=== PATIENT | female | born 1975 | race Native Hawaiian/Other Pacific Islander ===

== ENCOUNTER 2020-01-18 09:57 | Day surgery (SDC) | payer OTHER ==
[2019-12-25 10:16] VITALS: BMI 22.8
[~2020-01-18 09:57] MED LIST: LACTATED RINGERS 1,000 ML IV SCH; LIDOCAINE 1% (10MG/ML) FOR IV START INTRADERMA PRN
[2020-01-18 10:25] VITALS: BP 114/68; PULSE 98; TEMP 97.4
[2020-01-18] MEDS ORDERED: LACTATED RINGERS 1,000 ML IV ONE (10:29)
[2020-01-18] MEDS ORDERED: PROPOFOL 10 MG/ML 20 ML VIAL IV ONE (10:33)
--- NOTE | 2020-01-18 11:00 | P.PCN ---
Date of Procedure: 01/18/20 Description of Procedure: BRIEF HISTORY: Patient is a 44-year-old female presenting for evaluation colonoscopy for evaluation of family history of colon cancer. The patient has a family history of colon cancer in her father diagnosed in his 30s. Last colonoscopy 13 years ago. No other complaints at this time. PROCEDURE PERFORMED: Colonoscopy. PREOPERATIVE DIAGNOSIS: Family history of colon cancer, last colonoscopy 13 years ago. ESTIMATED BLOOD LOSS: Minimal. IV sedation per Anesthesia. PROCEDURE: After informed consent was obtained, the patient, was brought into the endoscopy unit. IV sedation was administered by Anesthesia under continuous monitoring. Digital rectal examination was normal. Initially the Olympus CF-190 flexible video colonoscope was then inserted in the rectum, gradually advanced into the cecum without any difficulty. Careful examination was performed as the scope was gradually being withdrawn. Ileocecal valve and the appendiceal orifice were visualized and appeared normal. Prep was excellent. Mucosa of the cecum, ascending colon, transverse colon, descending colon, sigmoid colon, and rectum appeared normal. A few scattered diverticula noted throughout the colon. Retroflexion was performed in the rectum and no lesions were seen. The patient tolerated the procedure well. IMPRESSION: Normal-appearing colon from rectum to cecum. Mild diverticulosis. RECOMMENDATIONS: Findings of this examination were discussed with the patient. Okay to resume diet. Okay to resume medications. Recommendation is for repeat colonoscopy in 5 years for family history of colon cancer.
== END 2020-01-18 11:54 | disposition home or self-care (01) ==
LOC: ORWHC2ENDO 09:57
PROVIDERS: ATTEND Internal Medicine
DX: Z12.11 Encounter for screening for malignant neoplasm of colon (principal); K57.30 Diverticulosis of large intestine without perforation or abscess without bleeding; Z80.0 Family history of malignant neoplasm of digestive organs; Z88.0 Allergy status to penicillin; Z79.3 Long term (current) use of hormonal contraceptives; Z79.899 Other long term (current) drug therapy; Z98.890 Other specified postprocedural states
CPT/HCPCS: 81025; J2704; G0105; 45378

== ENCOUNTER → 2020-08-19 | Outpatient (CLI) | payer OTHER ==
--- NOTE | 2020-08-19 15:14 | US ---
EXAMINATION TYPE: Transabdominal DATE OF EXAM: 08/19/2020 2:28 PM COMPARISON: NONE CLINICAL HISTORY: Z33.1 incidental, R10.2 pelvic/perineal. Bleeding, 4, para 2, mis carriage 1 EXAM PERFORMED: Unknown EXAM MEASUREMENTS: GESTATIONAL AGE / DATING Physician Established: Not established yet Dates by LMP: LMP unknown Dates by First Scan: No previous this is first scan Dates by Current Scan for: By gestational sac measurement (6 weeks/0 days) EDC: 04/14/2021 MATERNAL ANATOMY Uterus: 7.4 x 4.5 x 5.3cm Right Ovary: 2.0 x 1.1 x 2.5cm, 1.6cm hypoechoic area Left Ovary: 2.9 x 2.4 x 2.0cm, 1.6cm hypoechoic area Post CDS / Adnexa: wnl Presence of free fluid: no GESTATION / SURVEY No pole seen at this time MSD: 1.7cm (6 weeks/0 days) Yolk Sac (normal less than 6mm): 2.1mm Date of LMP: Unknown Beta HcG (if available): Not available at time of exam. IMPRESSION: 1. Gestational sac. Measuring 6 weeks 0 days gestation based on the mean sac diameter pole is n ot identified. Follow-up and correlation with beta-hCG is recommended. 2. Bilateral ovarian cysts.
== END ==
LOC: RADUSWWP 13:44
PROVIDERS: ATTEND Family Medicine
DX: N83.201 Unspecified ovarian cyst, right side (principal); N83.202 Unspecified ovarian cyst, left side; O34.81 Maternal care for other abnormalities of pelvic organs, first trimester; Z3A.01 Less than 8 weeks gestation of pregnancy
CPT/HCPCS: 76801; 76817

== ENCOUNTER 2020-09-01 15:16 | Emergency (ER) | payer OTHER ==
[2020-09-01 17:31] LABS: Appearance,Urine Clear (Clear); Bilirubin,Urine Negative (Negative); Blood,Urine Large (Negative); Color,Urine Light Yellow; Glucose,Urine (UA) Negative (Negative); Ketones,Urine Negative (Negative); Leukocyte Esterase,Urine Negative (Negative); Nitrite,Urine Negative (Negative); PH, Urine 7.5 (5.0-8.0); Protein,Urine Negative (Negative); RBC,Urine 1 /hpf (0-5); Specific Gravity,Urine 1.005 (1.001-1.035); Squamous Epithelial Cell,Urine 2 /hpf (0-4); Urobilinogen,Urine <2.0 mg/dL (<2.0); WBC,Urine <1 /hpf (0-5)
[2020-09-01 18:09] VITALS: TEMP 98.1
--- NOTE | 2020-09-01 19:17 | US ---
EXAMINATION TYPE: Transabdominal DATE OF EXAM: 09/01/2020 6:49 PM COMPARISON: US 08/19/2020 CLINICAL HISTORY: pain. Pain and bleeding. Hx miscarriage. A1. EXAM PERFORMED: Transvaginal (TV) and Transabdominal (TA) EXAM MEASUREMENTS: GESTATIONAL AGE / DATING Physician Established: Not yet established. Dates by LMP: Unknown. Dates by First Scan: (7 weeks/6 days) EDC: 04/14/2021. Gestational sac seen only at this time. Dates by Current Scan for: Possible gestational sac seen only at this time, measures out of range. MATERNAL ANATOMY Uterus: 8.2 x 5.5 x 4.2 cm. Appears heterogeneous. Hypoechoic area seen in cervix: 1.6 x 1.0 x 0.3 cm . Right Ovary: 2.6 x 2.7 x 1.8 cm. Left Ovary: Not seen. Post CDS / Adnexa: Fluid seen in CDS: 3.8 x 1.7 x 0.6 cm. Presence of free fluid: yes in CDS Presence of corpus luteal cyst: Not seen. GESTATION / SURVEY MSD: 0.71 cm. (Measures out of range.) Yolk Sac (normal less than 6mm): Not seen. IUP: Possible gestational sac seen only at this time. Measures OOR. Uterus/endometrium appears heter ogeneous. Date of LMP: Unknown Beta HcG (if available): Not available IMPRESSION: Small amount of fluid in the cervical canal could relate to active bleeding. Tiny fluid collection in the uterine fundus could be early gestational sac. Also consider blighted ovum since there is no sat isfactory development compared to previous exam of 08/19/2020.
--- NOTE | 2020-09-01 19:19 | ED ---
Female Urogenital HPI - General Source: patient Mode of arrival: ambulatory Limitations: no limitations - History of Present Illness Last Menstrual Period: 05/31/20 <Humberto Madrid - Last Filed: 09/01/20 23:42> <IainPauline Radha - Last Filed: 09/02/20 13:51> - General Chief complaint: Vaginal Bleeding Stated complaint: 6 wks preg/bleeding Time Seen by Provider: 09/01/20 18:59 - History of Present Illness Initial comments: 45-year-old female, 8 weeks , presenting to emergency Department with a chief complaint of vaginal bleeding and abdominal cramping. Patient states she has developed spotting for the past 2 weeks that has been intermittent in nature. Patient also reports increased vaginal bleeding from last night. Patient states she had to change her clothes twice and also had some bleeding noticed on her bed sheets. Patient reports having an ultrasound about 2 weeks ago and was found to have a viable intrauterine . Patient also reports lower abdominal cramping though it does not feel like her previous miscarriage. Patient reports this was an unplanned . She does report some nausea but no vomiting. Denies any dysuria, increased urgency or frequency. Denies any hematuria, hematochezia or melena. Denies any fevers or chills. Denies chest pain shortness of breath or back pain. (Humberto Madrid) - Related Data Home Medications Medication Instructions Recorded Confirmed Acyclovir (Unknown Dose) 1 tab PO TID PRN 12/24/19 01/18/20 Cholecalciferol [Vitamin D3 (25 2,000 unit PO DAILY 12/24/19 01/18/20 Mcg = 1000 Iu)] Magnesium Oxide 400 mg PO DAILY 12/24/19 01/18/20 Melatonin 2.5 mg PO HS PRN 12/24/19 01/18/20 Norethindrone-E.estradiol-Iron 1 each PO DAILY 12/24/19 01/18/20 [Junel Fe 24 Tablet] Sertraline [Zoloft] 50 mg PO DAILY 12/24/19 01/18/20 diphenhydrAMINE [Benadryl] 25 mg PO DIRECTED PRN 12/24/19 01/18/20 Allergies Allergy/AdvReac Type Severity Reaction Status Date / Time Penicillins Allergy Rash/Hives Verified 09/01/20 15:52 Review of Systems ROS Other: All systems not noted in ROS Statement are negative. <JuliusHumberto - Last Filed: 09/01/20 23:42> ROS Other: All systems not noted in ROS Statement are negative. <Pauline Timmons - Last Filed: 09/02/20 13:51> ROS Statement: Those systems with pertinent positive or pertinent negative responses have been documented in the HPI. Past Medical History Past Medical History: No Reported History Additional Past Medical History / Comment(s): "Sensitive stomach, a lot of diarrhea." Hx Genital HSV. History of Any Multi-Drug Resistant Organisms: None Reported Past Surgical History: No Surgical Hx Reported Additional Past Surgical History / Comment(s): Colonoscopy. Past Anesthesia/Blood Transfusion Reactions: No Reported Reaction Past Psychological History: Anxiety, Depression Smoking Status: Never smoker Past Alcohol Use History: None Reported Past Drug Use History: None Reported - Past Family History Father Family Medical History: Cancer <JuliusHumberto - Last Filed: 09/01/20 23:42> General Exam Limitations: no limitations General appearance: alert, in no apparent distress Head exam: Present: atraumatic, normocephalic, normal inspection Eye exam: Present: normal appearance, PERRL, EOMI Pupils: Present: normal accommodation ENT exam: Present: normal exam, normal oropharynx, mucous membranes moist, TM's normal bilaterally, normal external ear exam Neck exam: Present: normal inspection, full ROM. Absent: tenderness Respiratory exam: Present: normal lung sounds bilaterally. Absent: respiratory distress, wheezes, rales, rhonchi, stridor Cardiovascular Exam: Present: regular rate, normal rhythm, normal heart sounds GI/Abdominal exam: Present: soft. Absent: distended, tenderness, guarding, rebound External exam: Present: normal external exam. Absent: erythema, swelling, lesions Speculum exam: Present: vaginal bleeding (Unable to see cervical loss due to bleeding. Residual blood noted.), tissue (Small amounts of tissue noted. ) Extremities exam: Present: normal inspection, full ROM, normal capillary refill. Absent: tenderness Back exam: Present: normal inspection, full ROM. Absent: tenderness, CVA tenderness (R), CVA tenderness (L) Neurological exam: Present: alert, oriented X3 Psychiatric exam: Present: normal affect, normal mood Skin exam: Present: warm, dry, intact, normal color <Humberto Madrid - Last Filed: 09/01/20 23:42> Course Vital Signs 09/01/20 09/01/20 09/01/20 15:47 18:08 20:03 Temperature 98.8 F 98.1 F Pulse Rate 89 75 90 Respiratory 17 16 18 Rate Blood Pressure 116/74 106/69 103/68 O2 Sat by Pulse 100 99 100 Oximetry Medical Decision Making - Lab Data Result diagrams: 09/01/20 19:36 09/01/20 19:36 <Humberto Madrid - Last Filed: 09/01/20 23:42> - Lab Data Result diagrams: 09/01/20 19:36 09/01/20 19:36 <Pauline Timmons - Last Filed: 09/02/20 13:51> - Medical Decision Making 45-year-old female, , 8 weeks presenting to the emergency department with a chief complaint of vaginal bleeding. On physical examination, mild lower abdominal tenderness. Pelvic examination reveals tissue. Unable to fully visualize the cervical os due to the residual blood. This was dark red blood, no profuse bleeding at this time. UA reveals no signs of urina ry tract infection, just hematuria. Serum hCG reveals levels dropping to 1700, from 19,000. Ultrasound of the abdomen and pelvis reveals small amount of fluid in the cervical canal which could relate to active bleeding. There is a tiny fluid collection in the uterine fundus couldn't be an early gestational sac. Possible blighted ovum since there is no satisfactory development compared to ultrasound performed on 08/19/20. Patient likely having a miscarriage.. Case was discussed with who contacted Dr Easton who is aware that the patient is going to follow up in the outpatient setting. Dr Timmons also spoke to the patient reguarding this. Strict return parameters were thoroughly discussed with patient who is understanding and agreeable. (Humberto Madrid) I was available for consultation in the emergency department. The history and physical exam were done by the midlevel provider. I was consulted for this patients care. I reviewed the case with the midlevel provider and based on their presentation of the patient, I agree with the assessment, medical decision making and plan of care as documented. I spoke with Dr. Easton. Patient states she has been attempting to make an appointment with [email or web address] for 1 week without success. Notified her that Dr. Easton is aware of her condition and she must call in am to make appointment. Return for any new or worsening symptoms. Beta must return to zero. Patient understood this. Chart was dictated using VYou dictation software. Attempts were made to correct any dictation errors however some typographical errors may persist. Patient was seen during a national state of emergency due to the Covid-19 pandemic. (Pauline Timmons) - Lab Data Lab Results 09/01/20 09/01/20 09/01/20 Range/Units 19:35 19:36 19:36 WBC 8.9 (3.8-10.6) k/uL RBC 3.86 (3.80-5.40) m/uL Hgb 12.6 (11.4-16.0) gm/dL Hct 36.6 (34.0-46.0) % MCV 94.8 (80.0-100.0) fL MCH 32.7 (25.0-35.0) pg MCHC 34.5 (31.0-37.0) g/dL RDW 12.0 (11.5-15.5) % Plt Count 356 (150-450) k/uL MPV 6.4 Neutrophils % 67 % Lymphocytes % 23 % Monocytes % 5 % Eosinophils % 3 % Basophils % 1 % Neutrophils # 6.0 (1.3-7.7) k/uL Lymphocytes # 2.0 (1.0-4.8) k/uL Monocytes # 0.5 (0-1.0) k/uL Eosinophils # 0.3 (0-0.7) k/uL Basophils # 0.1 (0-0.2) k/uL Sodium 136 L (137-145) mmol/L Potassium 4.0 (3.5-5.1) mmol/L Chloride 101 (98-107) mmol/L Carbon Dioxide 27 (22-30) mmol/L Anion Gap 8 mmol/L BUN 10 (7-17) mg/dL Creatinine 0.55 (0.52-1.04) mg/dL Est GFR (CKD-EPI)AfAm >90 (>60 ml/min/1.73 sqM) Est GFR (CKD-EPI)NonAf >90 (>60 ml/min/1.73 sqM) Glucose 94 (74-99) mg/dL Calcium 9.4 (8.4-10.2) mg/dL Total Bilirubin 0.6 (0.2-1.3) mg/dL AST 28 (14-36) U/L ALT 15 (4-34) U/L Alkaline Phosphatase 49 (38-126) U/L Total Protein 7.4 (6.3-8.2) g/dL Albumin 4.5 (3.5-5.0) g/dL HCG, Quant 1726.0 mIU/mL Urine Color Urine Appearance (Clear) Urine pH (5.0-8.0) Ur Specific [place] (1.001-1.035) Urine Protein (Negative) Urine Glucose (UA) (Negative) Urine Ketones (Negative) Urine Blood (Negative) Urine Nitrite (Negative) Urine Bilirubin (Negative) Urine Urobilinogen (<2.0) mg/dL Ur Leukocyte Esterase (Negative) Urine RBC (0-5) /hpf Urine WBC (0-5) /hpf Ur Squamous Epith Cells (0-4) /hpf Blood Type O Positive Blood Type Confirm Blood Type Recheck No Previous Record Bld Type Recheck Status CABO Indicated Antibody Screen NEGATIVE Spec Expiration Date 09/04/2020 - 233509/01/20 09/01/20 Range/Units 19:36 Unknown WBC (3.8-10.6) k/uL RBC (3.80-5.40) m/uL Hgb (11.4-16.0) gm/dL Hct (34.0-46.0) % MCV (80.0-100.0) fL MCH (25.0-35.0) pg MCHC (31.0-37.0) g/dL RDW (11.5-15.5) % Plt Count (150-450) k/uL MPV Neutrophils % % Lymphocytes % % Monocytes % % Eosinophils % % Basophils % % Neutrophils # (1.3-7.7) k/uL Lymphocytes # (1.0-4.8) k/uL Monocytes # (0-1.0) k/uL Eosinophils # (0-0.7) k/uL Basophils # (0-0.2) k/uL Sodium (137-145) mmol/L Potassium (3.5-5.1) mmol/L Chloride (98-107) mmol/L Carbon Dioxide (22-30) mmol/L Anion Gap mmol/L BUN (7-17) mg/dL Creatinine (0.52-1.04) mg/dL Est GFR (CKD-EPI)AfAm (>60 ml/min/1.73 sqM) Est GFR (CKD-EPI)NonAf (>60 ml/min/1.73 sqM) Glucose (74-99) mg/dL Calcium (8.4-10.2) mg/dL Total Bilirubin (0.2-1.3) mg/dL AST (14-36) U/L ALT (4-34) U/L Alkaline Phosphatase (38-126) U/L Total Protein (6.3-8.2) g/dL Albumin (3.5-5.0) g/dL HCG, Quant mIU/mL Urine Color Light Yellow Urine Appearance Clear (Clear) Urine pH 7.5 (5.0-8.0) Ur Specific [place] 1.005 (1.001-1.035) Urine Protein Negative (Negative) Urine Glucose (UA) Negative (Negative) Urine Ketones Negative (Negative) Urine Blood Large H (Negative) Urine Nitrite Negative (Negative) Urine Bilirubin Negative (Negative) Urine Urobilinogen <2.0 (<2.0) mg/dL Ur Leukocyte Esterase Negative (Negative) Urine RBC 1 (0-5) /hpf Urine WBC <1 (0-5) /hpf Ur Squamous Epith Cells 2 (0-4) /hpf Blood Type Blood Type Confirm O Positive Blood Type Recheck Bld Type Recheck Status Antibody Screen Spec Expiration Date Disposition Is patient prescribed a controlled substance at d/c from ED?: No Time of Disposition: 20:48 <Humberto Madrid - Last Filed: 09/01/20 23:42> <Pauline Timmons - Last Filed: 09/02/20 13:51> Clinical Impression: Vaginal bleeding Disposition: HOME SELF-CARE Condition: Stable Instructions (If sedation given, give patient instructions): Miscarriage (ED) Additional Instructions: Follow-up with the OB. Return to emergency department if symptoms worsen. Referrals: Aravind Luther DO [Primary Care Provider] - 1-2 days
[2020-09-01 19:42] LABS: Basophils # (A) 0.1 k/uL (0-0.2); Basophils % (A) 1 %; Eosinophils # (A) 0.3 k/uL (0-0.7); Eosinophils % (A) 3 %; HCT 36.6 % (34.0-46.0); HGB 12.6 gm/dL (11.4-16.0); Lymphocytes % (A) 23 %; MCH 32.7 pg (25.0-35.0); MCHC 34.5 g/dL (31.0-37.0); MCV 94.8 fL (80.0-100.0); Mean Platelet Volume 6.4; Monocytes # (A) 0.5 k/uL (0-1.0); Monocytes % (A) 5 %; Neutrophils % (A) 67 %; Platelet Count 356 k/uL (150-450); RBC 3.86 m/uL (3.80-5.40); WBC 8.9 k/uL (3.8-10.6)
[2020-09-01 20:02] LABS: ALT 15 U/L (4-34); AST 28 U/L (14-36); African American GFR (CKD) >90 (>60 ml/min/1.73 sqM); Albumin 4.5 g/dL (3.5-5.0); Alkaline Phosphatase 49 U/L (38-126); Anion Gap 8 mmol/L; Blood Urea Nitrogen 10 mg/dL (7-17); Calcium 9.4 mg/dL (8.4-10.2); Carbon Dioxide 27 mmol/L (22-30); Chloride 101 mmol/L (98-107); Glucose 94 mg/dL (74-99); Non-African American GFR(CKD) >90 (>60 ml/min/1.73 sqM); Sodium 136 mmol/L (137-145); Total Bilirubin 0.6 mg/dL (0.2-1.3); Total Protein 7.4 g/dL (6.3-8.2)
[2020-09-01 20:03] VITALS: BP 103/68; PULSE 90; RESP 18
== END 2020-09-01 21:06 | disposition home or self-care (01) ==
LOC: EC 15:16
DX: O20.9 Hemorrhage in early pregnancy, unspecified (principal); O99.341 Other mental disorders complicating pregnancy, first trimester; F32.9 Major depressive disorder, single episode, unspecified; Z3A.08 8 weeks gestation of pregnancy
CPT/HCPCS: 36415; 76801; 76817; 80053; 81001; 84702; 85025; 86850; 86900; 86901

== ENCOUNTER → 2021-03-17 | Outpatient (CLI) | payer OTHER ==
--- NOTE | 2021-03-20 11:46 | MM ---
Reason for exam: screening (asymptomatic). Last mammogram was performed 5 years ago. History: Family history of breast cancer in maternal grandmother. Took hormonal contraceptives for 5 years. Took estrogen for 5 years. Physical Findings: A clinical breast exam by your physician is recommended on an annual basis and results should be correlated with mammographic findings. MG Screening Mammo w CAD Bilateral CC and MLO view(s) were taken. Prior study comparison: March 27, 2016, mammogram, performed at [place]. The breast tissue is extremely dense which could obscure a lesion on mammography. Focal asymmetry right breast. This finding is changed when compared with previous exams. ASSESSMENT: Incomplete: need additional imaging evaluation, BI-RAD 0 RECOMMENDATION: Special view mammogram of the right breast. If lesion persists on supplemental views, image directed ultrasound is recommended. [facility] will attempt to contact patient to return for supplemental views and ultrasound if indicated.
== END | disposition home or self-care (01) ==
LOC: RADMAMWWP 07:59
PROVIDERS: ATTEND Obstetrics & Gynecology
DX: Z12.31 Encounter for screening mammogram for malignant neoplasm of breast (principal); Z80.3 Family history of malignant neoplasm of breast
CPT/HCPCS: 77067

== ENCOUNTER → 2021-03-23 | Outpatient (CLI) | payer OTHER ==
--- NOTE | 2021-03-24 10:45 | MM ---
Reason for exam: additional evaluation requested from abnormal screening. Last mammogram was performed less than 1 month ago. History: Family history of breast cancer in maternal grandmother. Taking hormonal contraceptives for 5 years. Took estrogen for 5 years. Physical Findings: Nurse did not find any significant physical abnormalities on exam. MG Work Up Mamm w CAD RT Spot compression CC, spot compression MLO, and LM view(s) were taken of the right breast. Prior study comparison: March 17, 2021, bilateral MG screening mammo w CAD. March 27, 2016, mammogram, performed at [place]. The breast tissue is heterogeneously dense. This may lower the sensitivity of mammography. Medial asymmetry persists on spot CC. However no persisting abnormality on spot MLO or true lateral. Ultrasound recommended. These results were verbally communicated with the patient and result sheet given to the patient on 03/23/21. ASSESSMENT: Incomplete: need additional imaging evaluation, BI-RAD 0 RECOMMENDATION: Ultrasound of the right breast. (medial half and axilla at pain)
--- NOTE | 2021-03-24 10:46 | USB ---
Reason for exam: additional evaluation requested from abnormal screening. History: Family history of breast cancer in maternal grandmother. Taking hormonal contraceptives for 5 years. Took estrogen for 5 years. US Breast Workup RT Right complete breast ultrasound includes all four quadrants, the retroareolar region and axilla. Finding demonstrates no cystic or solid lesion seen. Scanned whole breast. These results were verbally communicated with the patient and result sheet given to the patient on 03/23/21. ASSESSMENT: Probably benign, BI-RAD 3 RECOMMENDATION: Follow-up diagnostic mammogram of the right breast in 6 months.
== END | disposition home or self-care (01) ==
LOC: RADMAMWWP 13:42
PROVIDERS: ATTEND Obstetrics & Gynecology
DX: N64.89 Other specified disorders of breast (principal); Z80.3 Family history of malignant neoplasm of breast
CPT/HCPCS: 77065

== ENCOUNTER → 2021-08-18 | Outpatient (CLI) | payer OTHER ==
--- NOTE | 2021-08-19 07:19 | US ---
EXAMINATION TYPE: US transvaginal DATE OF EXAM: 08/18/2021 COMPARISON: NONE CLINICAL HISTORY: O20.1 Missed . Family history ovarian CA, 4, para 2 TECHNIQUE: Transvaginal ER exam Date of LMP: 08/11/2021 EXAM MEASUREMENTS: Uterus: 7.1 x 3.4 x 3.5 cm Endometrial Stripe: 0.4 cm Right Ovary: 1.6 x 1.2 x 2.2 cm Left Ovary: 3.5 x 2.0 x 2.5 cm 1. Uterus: anteverted, mildly heterogeneous 2. Endometrium: wnl 3. Right Ovary: wnl 4. Left Ovary: 2.4 x 1.6 x 2.2cm cyst 5. Bilateral Adnexa: wnl 6. Posterior cul-de-sac: wnl IMPRESSION: 1. Mild heterogeneity of the uterine myometrium could reflect small leiomyomatous change. 2. Probable functional left ovarian cyst which can be confirmed with follow-up study in 6 weeks.
--- NOTE | 2021-08-19 07:19 | US ---
EXAMINATION TYPE: US kidneys/renal and bladder DATE OF EXAM: 08/18/2021 COMPARISON: NONE CLINICAL HISTORY: R31.9 Hematuria. Hematuria, frequent urination EXAM MEASUREMENTS: Right Kidney: 9.4 x 4.0 x 4.4 cm Left Kidney: 11.6 x 4.9 x 4.7 cm Right Kidney: smaller than left kidney, no hydronephrosis or masses seen Left Kidney: no hydronephrosis or masses seen Bladder: wnl Bilateral Jets seen: yes There is no evidence for hydronephrosis at this point in time. No nephrolithiasis is seen. No holly s are identified. The urinary bladder is anechoic. Bilateral ureteral jets are seen. IMPRESSION: Mild atrophic change right kidney.
== END | disposition home or self-care (01) ==
LOC: RADUSWWP 15:41
PROVIDERS: ATTEND Family Medicine
DX: N26.1 Atrophy of kidney (terminal) (principal)
CPT/HCPCS: 76770; 76830

== ENCOUNTER → 2021-11-17 | Outpatient (CLI) | payer OTHER ==
--- NOTE | 2021-11-17 13:47 | MM ---
Reason for Exam: Follow-up at short interval from prior study. Last screening mammogram was performed 8 month(s) ago. Patient History: Menarche at age 13. First Full-Term at age 25. Currently using Hormonal Contraceptives, for 5 years. Maternal grandmother had breast cancer at or over age 50. Maternal grandmother had ovarian cancer, age 42. Last menstrual period: 11/09/2021 Risk Values: Yuliana 5 year model risk: 0.7%. NCI Lifetime model risk: 8.6%. Prior Study Comparison: 03/27/2016 Screening Mammogram, [place]. 03/17/2021 Bilateral Screening Mammogram, [facility]. 03/23/2021 Right Diagnostic Mammogram, [facility]. Tissue Density: Right: The breast tissue is extremely dense which could obscure a lesion on mammography. Findings: Analyzed By CAD. No suspicious abnormality in the upper-outer aspect right breast is evident. Follow-up is recommended. Overall Assessment: Probably benign, BI-RAD 3 Management: Diagnostic Mammogram of both breasts in 6 months. A clinical breast exam by your physician is recommended on an annual basis and results should be correlated with mammographic findings. This exam should not preclude additional follow-up of suspicious palpable abnormalities. Results were given to the patient verbally at the time of exam. Electronically signed and approved by: Omari Webb D.O. Radiologis
== END | disposition home or self-care (01) ==
LOC: RADMAMWWP 13:03
PROVIDERS: ATTEND Family Medicine
DX: R92.8 Other abnormal and inconclusive findings on diagnostic imaging of breast (principal); Z80.3 Family history of malignant neoplasm of breast; Z80.41 Family history of malignant neoplasm of ovary
CPT/HCPCS: 77065

== ENCOUNTER → 2022-03-01 | Outpatient (CLI) | payer OTHER ==
--- NOTE | 2022-03-01 11:24 | XR ---
EXAMINATION TYPE: XR cervical spine comp DATE OF EXAM: 03/01/2022 COMPARISON: NONE HISTORY: Pain TECHNIQUE: Four views are submitted. FINDINGS: The odontoid is intact. There are no compression deformities. The prevertebral soft tissue structur es are within normal limits. Degenerative disc disease C5-6 C6-C7. IMPRESSION: 1. Mild degenerative disc disease C5-6 and C6-C7. Consider MRI follow-up..
--- NOTE | 2022-03-01 11:27 | XR ---
EXAMINATION TYPE: XR shoulder complete RT DATE OF EXAM: 03/01/2022 COMPARISON: NONE HISTORY: Pain TECHNIQUE: Three views are submitted. FINDINGS: The osseous structures are intact. There is no acute fracture or dislocation. The AC joint is maint ained. However, clavicle slightly elevated relative to acromion. IMPRESSION: 1. AC joint distance is normal. There is slight elevation of the clavicle. Correlate with point tende rness.. Consider follow-up MRI to assess AC joint ligamentous injury.
== END | disposition home or self-care (01) ==
LOC: RADXRYALE 10:57
PROVIDERS: ATTEND Physician Assistant
DX: M50.323 Other cervical disc degeneration at C6-C7 level (principal); M25.511 Pain in right shoulder
CPT/HCPCS: 72050

== ENCOUNTER → 2022-03-21 | Outpatient (CLI) | payer OTHER ==
--- NOTE | 2022-03-22 02:46 | MR ---
EXAMINATION TYPE: MR shoulder RT wo con DATE OF EXAM: 03/21/2022 COMPARISON: None HISTORY: Rt shoulder and neck pain Multiplanar multiecho imaging of the right shoulder with no contrast. There is septated cystic fluid collection posterior to the posterior glenoid labrum that measures 18 x 12 mm that is consistent with synovial cyst. The glenoid queta appear intact. The subscapularis ten don is intact. Biceps tendon is intact. The supraspinatus tendon is intact. No retraction. The infraspinatus tendon is intact. No evidence of rotator cuff tear. AC joint is intact with no subacromial impingement. Scapula is intact. No bony destructive process. Glenohumeral joint space is fairly normal. IMPRESSION: No evidence of rotator cuff tear. Synovial cyst on the posterior aspect of the shoulder joint.
== END | disposition home or self-care (01) ==
LOC: RADMRIMAIN 18:45
PROVIDERS: ATTEND Family Medicine
DX: M25.511 Pain in right shoulder (principal)

== ENCOUNTER → 2022-11-23 | Outpatient (CLI) | payer OTHER ==
--- NOTE | 2022-11-25 19:47 | XR ---
EXAMINATION TYPE: XR cervical spine 5 views comp, XR lumbar spine or 3V, XR thoracic spine 3 views co mplete DATE OF EXAM: 11/23/2022 COMPARISON: None HISTORY: 47-year-old female M41.9. FINDINGS: Cervical spine: No significant bony neural foraminal narrowing seen on either side. No predental space widening or pr evertebral soft tissue swelling. There is grade 1 anterolisthesis at C7-T1 likely due to underlying f acet arthropathy. Disc interspaces are preserved. Normal odontoid view. Thoracic spine: Slight reverse S-shaped scoliotic curvature of the thoracolumbar spine. 12 rib bearing thoracic verte bral bodies. All pedicles are visualized. Vertebral body heights are preserved and alignment is maint ained. Lumbar spine: 5 lumbar type vertebral bodies. Vertebral body heights are preserved and alignment is maintained. IMPRESSION: 1. Cervical spine: Grade 1 anterolisthesis at C7-T1 likely due to underlying facet arthropathy. 2. Thoracic spine: A slight reverse S-shaped scoliotic curvature of the thoracolumbar spine. No verte bral compression collapse or malalignment. 3. Lumbar spine: No vertebral compression collapse or malalignment.
== END | disposition home or self-care (01) ==
LOC: RADXRMAIN 17:34
PROVIDERS: ATTEND Physician Assistant
DX: M43.12 Spondylolisthesis, cervical region (principal); M41.35 Thoracogenic scoliosis, thoracolumbar region
CPT/HCPCS: 72050; 72072; 72100

== ENCOUNTER → 2023-10-16 | Outpatient (CLI) | payer OTHER ==
--- NOTE | 2023-10-16 21:43 | MM ---
Reason for Exam: Screening (asymptomatic). Last mammogram was performed 1 year(s) and 3 month(s) ago. Patient History: Menarche at age 13. First Full-Term at age 25. Premenopausal. Patient has history of breast feeding. Currently using Hormonal Contraceptives, for 5 years. Maternal grandmother had ovarian cancer, age 42. Risk Values: Yuliana 5 year model risk: 0.8%. NCI Lifetime model risk: 8.4%. Prior Study Comparison: 03/23/2021 Right Diagnostic Mammogram, [facility]. 11/17/2021 Right MG diagnostic mammo RT w CAD, [facility]. 08/06/2022 Bilateral MG 3D diag mammo w/cad PHILLIP, [facility]. Tissue Density: The breasts are heterogeneously dense, which may obscure small masses. Findings: Analyzed By CAD. The pattern is symmetrical. Pattern appears stable. No significant interval change is evident. No suspicious groups of microcalcifications, spiculated or lobular masses, architectural distortion or other secondary signs of malignancy are mammographically apparent. Overall Assessment: Benign, BI-RAD 2 Management: Screening Mammogram of both breasts in 1 year. A negative mammogram report should not preclude additional follow up of suspicious palpable abnormalities. Patient should continue monthly self breast exam. A clinical breast exam by your physician is recommended on an annual basis and results should be correlated with mammographic findings. Note on Yuliana scores and lifetime risk: 1. A Yuliana score greater than 3% is considered moderate risk. If this is the case, consider specialist referral to assess eligibility for a risk reducing agent. 2. If overall lifetime risk for the development of breast cancer is 20% or higher, the patient may qualify for future screening with alternating mammogram and breast MRI. Electronically signed and approved by: Omari Webb D.O. Radiologis
== END | disposition home or self-care (01) ==
LOC: RADMAMWWP 07:47
PROVIDERS: ATTEND Obstetrics & Gynecology
DX: Z12.31 Encounter for screening mammogram for malignant neoplasm of breast (principal)
CPT/HCPCS: 77063; 77067